=== PATIENT | male | born 1970 | race Caucasian/White ===

== ENCOUNTER 2022-12-01 13:55 | Emergency (ER) | payer MEDICAID, OTHER ==
[~2022-12-01] VITALS: Ht 175.3 cm; Wt 81.6 kg
[2022-12-01] MEDS ORDERED: EFFEXOR (14:03)
[2022-12-01] MEDS ORDERED: DEPAKOTE (14:03)
[2022-12-01] MEDS ORDERED: AMBIEN (14:03)
[2022-12-01] MEDS ORDERED: ZYPREXA (14:03)
[2022-12-01] MEDS ORDERED: TYLENOL (14:03)
[2022-12-01] MEDS ORDERED: ABILIFY (14:03)
[2022-12-01] MEDS ORDERED: ZESTRIL (14:03)
[2022-12-01 14:27] LABS: BASOPHILS # (AUTO) 0.1 K/UL (0.0-0.2); BASOPHILS % (AUTO) 0.9 % (0.0-2.0); EOSINOPHILS # (AUTO) 0.1 K/uL (0.0-0.7); EOSINOPHILS % (AUTO) 1.1 % (0.0-7.0); HEMATOCRIT 41.1 % (36.7-47.1); HEMOGLOBIN 13.6 g/dL (12.5-16.3); LYMPHOCYTES # (AUTO) 1.4 K/uL (0.8-4.8); LYMPHOCYTES % (AUTO) 17.5 % (20.5-51.5); MEAN CORPUSCULAR HEMOGLOBIN 30.6 uug (23.8-33.4); MEAN CORPUSCULAR HGB CONC 33 g/dL (32.5-36.3); MEAN CORPUSCULAR VOLUME 92.7 fL (73.0-96.2); MONOCYTES # (AUTO) 0.7 K/uL (0.1-1.30); MONOCYTES % (AUTO) 8.4 % (0.0-11.0); NEUTROPHILS # (AUTO) 5.9 K/uL (1.8-8.9); NEUTROPHILS % (AUTO) 72.1 % (38.5-71.5); PLATELET COUNT (AUTO) 198 K/uL (152-348); RED BLOOD CELL COUNT(AUTO) 4.43 MIL/uL (4.06-5.63); RED CELL DISTRIBUTION WIDTH 14.1 % (12.1-16.2); WHITE BLOOD COUNT (AUTO) 8.2 K/uL (3.6-10.2)
[2022-12-01 14:33] LABS: DIFFERENTIAL COMMENT 1
[2022-12-01 14:36] LABS: CALCIUM 8.6 mg/dL (8.5-10.1); CARBON DIOXIDE 28 mmol/L (21-32); CHLORIDE 102 mmol/L (98-107); CREATININE 0.9 mg/dL (0.6-1.3); GLUCOSE 97 mg/dL (74-106); SODIUM SERUM 139 mmol/L (136-145); UREA NITROGEN, BLOOD 9 mg/dL (7-18)
[2022-12-01 14:44] LABS: ALANINE AMINOTRANSFERASE 15 U/L (16-63); ALBUMIN 3.4 g/dL (3.4-5.0); ALKALINE PHOSPHATASE 85 U/L (50-136); ASPARTATE AMINOTRANSFERASE 10 U/L (15-37); BILIRUBIN,DIRECT 0.1 mg/dL (0.0-0.2); BILIRUBIN,TOTAL 0.3 mg/dL (0.2-1.0); ETHANOL < 3 MG/DL (0-10); TOTAL PROTEIN, SERUM 6.7 g/dL (6.4-8.2)
[2022-12-01 14:45] LABS: AMMONIA 16 umol/L (11-32)
[2022-12-01 14:47] LABS: ACETAMINOPHEN < 2.0 ug/mL (10-30)
[2022-12-01 14:50] LABS: THYROID STIMULATING HORMONE 0.692 mIU/mL (0.358-3.740)
[2022-12-01] MEDS ORDERED: diphenhydrAMINE 50 MG/1 ML VIAL IM ONE ×2 (15:15→15:45)
[2022-12-01] MEDS ORDERED: HALOPERIDOL LACTATE 5 MG/1 ML VIAL IM ONE ×2 (15:15→15:45)
[2022-12-01] MEDS ORDERED: LORAZEPAM 2 MG/1 ML VIAL IM ONE ×2 (15:15→15:45)
[2022-12-01] MEDS ORDERED: OLANZAPINE 5 MG TABLET ONE (15:26)
[2022-12-01] MEDS ORDERED: OLANZAPINE 5 MG TABLET PO ONE (15:30)
[2022-12-01] MEDS ORDERED: diphenhydrAMINE 50 MG/1 ML VIAL ONE (15:45)
[2022-12-01] MEDS ORDERED: HALOPERIDOL LACTATE 5 MG/1 ML VIAL ONE (15:45)
[2022-12-01] MEDS ORDERED: LORAZEPAM 2 MG/1 ML VIAL ONE (15:46)
[2022-12-01 21:20] VITALS: O2SAT 98
== END 2022-12-01 21:30 ==
LOC: ER 13:55
DX: F20.9 Schizophrenia, unspecified (principal); R51.9 Headache, unspecified; R07.89 Other chest pain; Z79.899 Other long term (current) drug therapy
CPT/HCPCS: 87635; 80076; 80048; 82140; 84443; 85025; 85730; 87426; 84484; 36415; 93005; 71045; 70450; 99285; 96372 ×3; 80299; 80320; C9803; J1200; J1630; J2060; A4663; G0480